=== PATIENT | male | born 1975 | race Caucasian/White ===

== ENCOUNTER → 2017-07-19 | Outpatient (CLI) | payer OTHER ==
--- NOTE | 2017-07-19 12:41 | EST ---
EXERCISE STRESS DATE OF SERVICE: 07/19/2017 AGE: 41 SEX: Male HT: 6'3" WT: 215 pounds PROTOCOL: Camilo STAGE: IV DURATION OF EXERCISE: 12:47 HEART RATE REST: 73 BLOOD PRESSURE REST: 145/64 MAXIMUM HEART RATE ACHIEVED: 175 MAXIMUM BLOOD PRESSURE: 166/71 85% MPHR: 154 100% MPHR: 181 METS: 12.9 INDICATIONS: Chest pain CLINICAL INFORMATION: STRESS DATA: Pretesting physical examination showed a heart rate of 73, pressure is 145/64 mmHg. Baseline EKG showed sinus mechanism. The patient exercised on the treadmill according to Camilo protocol for a total of 12 minutes and 47 seconds and achieved 12.9 METs. Max heart rate was 175, which is about 96% of maximum predicted heart rate. Maximum blood pressure was 166/71 mmHg. Clinically the patient did not have any symptoms of chest pain or discomfort. The EKG did not reveal any significant ST or T-wave abnormalities consistent with ischemia. CONCLUSION: 1. Excellent exercise tolerance. 2. Normal EKG in response to exercise. 3. Essentially normal stress test for the patient. MMODL / IJN: [id number] /
--- NOTE | 2017-07-19 13:17 | ECHOF ---
Referral Reason:R94.31 Abnormal EKG MEASUREMENTS -------- HEIGHT: 188.0 cm WEIGHT: 97.5 kg BP: RVIDd: 3.4 cm (< 3.3) IVSd: 1.0 cm (0.6 - 1.1) LVIDd: 4.1 cm (3.9 - 5.3) LVPWd: 1.3 cm (0.6 - 1.1) IVSs: 1.3 cm LVIDs: 3.0 cm LVPWs: 1.5 cm LA Diam: 3.4 cm (2.7 - 3.8) LAESV Index (A-L): 19.55 ml/m Ao Diam: 3.4 cm (2.0 - 3.7) AV Cusp: 2.5 cm (1.5 - 2.6) LA Diam: 3.2 cm (2.7 - 3.8) MV EXCURSION: 25.336 mm (> 18.000) MV EF SLOPE: 92 mm/s (70 - 150) EPSS: 0.5 cm MV E Naun: 0.44 m/s MV DecT: 204 ms MV A Naun: 0.50 m/s MV E/A Ratio: 0.89 RAP: 5.00 mmHg RVSP: 30.55 mmHg FINDINGS -------- Sinus rhythm. This was a technically good study. LV size, wall thickness and systolic function are normal, with an EF greater than 55%. The left myla tricular size is normal. The right ventricle is normal in size. The left atrial size is normal. The right atrial size is normal. The aortic valve is trileaflet, and appears structurally normal. No aortic stenosis or regurgitation. Mild mitral regurgitation is present. Mild tricuspid regurgitation present. There is mild pulmonary hypertension. The right ventricular systolic pressure, as measured by Doppler, is 30.55mmHg. There is no pulmonic regurgitation present. The aortic root size is normal. There is no pericardial effusion. CONCLUSIONS -------- 1. LV size, wall thickness and systolic function are normal, with an EF greater than 55%. 2. The left ventricular size is normal. 3. The aortic valve is trileaflet, and appears structurally normal. No aortic stenosis or regurgitati on. 4. Mild mitral regurgitation is present. 5. Mild tricuspid regurgitation present. 6. There is mild pulmonary hypertension. 7. The right ventricular systolic pressure, as measured by Doppler, is 30.55mmHg. 8. There is no pulmonic regurgitation present. 9. The aortic root size is normal. 10. There is no pericardial effusion. REGISTERED NURSE CARDIAC: Samantha Salinas RDCS
== END | disposition home or self-care (01) ==
LOC: RADNMMAIN 10:49
PROVIDERS: ATTEND Family Medicine
DX: I08.1 Rheumatic disorders of both mitral and tricuspid valves (principal); I27.20 Pulmonary hypertension, unspecified
CPT/HCPCS: 93017; 93306